=== PATIENT | male | born 1995 | race Caucasian/White ===

== ENCOUNTER 2018-10-13 03:01 | Emergency (ER) | payer OTHER ==
[~2018-10-13] VITALS: Ht 180.3 cm; Wt 97.0 kg
[~2018-10-13 03:01] MED LIST: BEN50 PO; RANI150T35 PO
[2018-10-13 03:09] VITALS: BP 172/79; PULSE 95; RESP 20; Ht 180.3 cm; Wt 97.0 kg
[2018-10-13] MEDS ORDERED: RANITIDINE 150 MG TAB PO ONE (04:00)
[2018-10-13] MEDS ORDERED: DEXAMETHASONE 10 MG/ML 1 ML INJ IM ONE (04:00)
--- NOTE | 2018-10-13 06:19 | ERD ---
ER Documentation Chief Complaint Chief Complaint Pt reports allergic reaction to a supplement HPI Patient is 22-year-old male presented to ED for possible allergic reaction to a workout supplement. Patient states that he has had an allergy to the supplement before and he took it around 2 AM this morning before going to the gym. The patient stated that he started getting a body rash and he immediately took 50 mg of Benadryl. Patient denies any allergies to medications. Patient denies any past medical history and states this happened one other time when he took the supplement. Patient does not know the name of the supplement. The patient is in no respiratory distress and is presenting with vitals and stable limits ROS All systems reviewed and are negative except as per history of present illness. Medications Home Meds Active Scripts Ranitidine Hcl* (Zantac*) 150 Mg Tablet, 150 MG PO BID PRN for EPIGASTRIC PAIN, #30 TAB Prov:ALFA FOSS PA-C 10/13/18 Diphenhydramine Hcl* (Benadryl*) 50 Mg Cap, 50 MG PO Q6H PRN for ITCHING/RASH, #30 CAP Prov:ALFA FOSS PA-C 10/13/18 Allergies Allergies: Coded Allergies: No Known Allergy (Unverified , 10/13/18) PMhx/Soc Medical and Surgical Hx: pt denies Medical Hx, pt denies Surgical Hx Hx Alcohol Use: No Hx Substance Use: No Hx Tobacco Use: No Smoking Status: Never smoker FmHx Family History: No diabetes, No coronary disease, No other Physical Exam Vitals Vital Signs Date Temp Pulse Resp B/P (MAP) Pulse Ox O2 O2 Flow FiO2 Time Delivery Rate 10/13/18 98.0 68 16 114/55 99 Room Air 05:15 (74) 10/13/18 98.3 95 20 172/79 100 03:09 (110) Physical Exam GENERAL: The patient is well-appearing, well-nourished, in no acute distress HEENT: Atraumatic. Conjunctivae are pink. Pupils equal, round, and reactive to light. There is no scleral icterus. Tympanic membranes clear bilaterally. Oropharynx clear. No nystagmus or photophobia. NECK: C-spine is soft and supple. There is no meningismus. There is no cervical lymphadenopathy. CHEST: Clear to auscultation bilaterally. There are no rales, wheezes or rhonchi. HEART: Regular rate and rhythm. No murmurs, clicks, rubs or gallops. SKIN: Hives located on anterior aspect the chest and bilateral arms Results 24 hrs Current Medications Medications Dose Sig/Esteban Start Time Status Last (Trade) Ordered Route PRN Stop Time Admin Dose Reason Admin 10 mg ONCE ONCE 10/13/18 DC 10/13/18 Dexamethasone IM 04:00 10/13/18 04:18 (Decadron) 04:01 Ranitidine 150 mg ONCE ONCE 10/13/18 DC 10/13/18 HCl PO 04:00 10/13/18 04:17 (Zantac) 04:01 Procedures/MDM ED course: The patient was stable throughout the ED course. The patient and/or family informed of laboratory and diagnostic imaging results throughout the ED course. Medications given in ER: Decadron Zantac Patient tolerated medication well with no adverse reactions. Patient reported improvement in pain. Medical decision makin-year-old male presented to ED for possible allergic reaction. Patient is alert oriented x4 and in no acute respiratory distress. Patient took a workout supplement and broke out in hives immediately. Patient states this is happened one other time in the past. During the ED the patient was given Decadron and Zantac. At this time I have low suspicion for anaphylactic reaction airway obstruction. Patient had negative Nikolsky sign. Patient remained stable during the ED. I did not give the patient Benadryl because he took Benadryl prior to coming. I advised the patient that if symptoms worsen he should return to ER immediately. Patient is agreement to the treatment plan had no further questions on discharge Prescription for home: Benadryl Zantac I have discussed with the patient proper use and common side effects to expert with the medication . I advised the patient/family to speak with the pharmacist dispensing the medication to be advised of any potential drug interactions with other medication or supplements they may be taking. Discharge: At this time, patient is stable for discharge and outpatient management. I have instructed the patient to follow-up with his\her primary care physician in 1 to 2 days. I have discussed with the patient the possibility of needing to see a specialist for further work-up and imaging studies if symptoms persist. I have instructed the patient to promptly return to the ER for any new or worsening symptoms including increased pain, fever, nausea, vomiting, weakness or LOC. The patient and\or family expressed understanding of and agreement with this plan. All questions were answered. Home care instructions were provided. Disclaimer: Inadvertent spelling and grammatical errors are likely due to EHR\dictation software use and do not reflect on the overall quality of patient care. Also, please note that the electronic time recorded on the note does not necessarily reflect the actual time of the patient encounter. Departure Diagnosis: Primary Impression: Allergic reaction Encounter type: initial encounter Qualified Codes: T78.40XA - Allergy, unspecified, initial encounter Condition: Stable Patient Instructions: Allergic Reaction, Drug Additional Instructions: Call your primary care doctor TOMORROW for an appointment during the next 1-2 days.See the doctor sooner or return here if your condition worsens before your appointment time. Discontinue supplement immediately. ALFA FOSS PA-C Oct 13, 2018 06:19
== END 2018-10-13 05:15 | disposition home or self-care (01) ==
LOC: FTE 03:01
DX: L50.0 Allergic urticaria (principal)
CPT/HCPCS: 96372; J1100